=== PATIENT | female | born 1980 | race Asian ===

== ENCOUNTER 2016-12-18 19:37 | Inpatient (IN) | payer BC ==
[~2016-12-18] VITALS: Ht 154.9 cm; Wt 68.0 kg
[2016-12-18] VITALS (13 sets, daily range): BP systolic 115–161; BP diastolic 55–77
[~2016-12-18 19:37] MED LIST: DOCUSATE SODIU100 MG PO; ENDOCET 5-3251 EACH PO; IBUPROFEN800 MG PO; PERCOCET 5/31 TABLET PO; PRENATAL TABLE1 EAC3 PO; ZOFRAN4 MG PO
[2016-12-18 20:44] LABS: BASOPHIL COUNT 0.1 K/uL (0-0.1); EOSINOPHIL (%) 0.4 % (0-5); EOSINOPHIL COUNT 0.1 K/uL (0-0.3); HEMATOCRIT 41.1 % (36.0-46.0); IMMATURE GRANULOCYTE (%) 1.2 % (0.0-0.7); IMMATURE GRANULOCYTE COUNT 0.2 K/uL; INSTRUMENT ABS NEUTROPHIL CT 9.8 K/uL; LYMPHOCYTE COUNT 2.3 K/uL (1.0-2.8); MCH 30.5 PG (29.0-34.0); MCHC 32.8 G/DL (30.0-36.0); MCV 92.8 FL (83-99); MEAN PLAT.VOLUME 8.9 uM^3 (9.5-12.4); MONOCYTE COUNT 1.4 K/uL (0-0.8); NEUTROPHIL (%) 71.5 % (45-76); NEUTROPHIL COUNT 9.8 K/uL (1.8-6.4); PLATELET COUNT 255 K/uL (156-360); RBC DIS.WIDTH-CV 14.6 % (11.8-14.6); RBC DIS.WIDTH-SD 49.4 % (39-53); RED BLOOD COUNT 4.43 M/uL (3.80-5.20); WHITE BLOOD COUNT 13.7 K/uL (4.1-10.2)
[2016-12-19] VITALS (18 sets, daily range): BP systolic 106–146; BP diastolic 55–76
[2016-12-20 08:00] VITALS: BP 106/60
[2016-12-20 14:38] VITALS: BP 104/53
[2016-12-20 22:52] VITALS: BP 128/66
== END 2016-12-21 14:55 | disposition home or self-care (01) | DRG 775 ==
LOC: LDRP-OP 19:37 → 2WEST 19:38 → LDRP-OP 01-25 15:41
PROVIDERS: Nurse Practitioner
PROC: 10907ZC Drainage of Amniotic Fluid, Therapeutic from Products of Conception, Via Natural or Artificial Opening (ICD-10-PCS; principal; 2016-12-19)
PROC: 3E0R3CZ (ICD-10-PCS; principal; 2016-12-19)
PROC: 00HU33Z Insertion of Infusion Device into Spinal Canal, Percutaneous Approach (ICD-10-PCS; principal; 2016-12-19)
PROC: 10E0XZZ Delivery of Products of Conception, External Approach (ICD-10-PCS; principal; 2016-12-19)
DX: O70.1 Second degree perineal laceration during delivery (principal); O77.0 Labor and delivery complicated by meconium in amniotic fluid; Z3A.39 39 weeks gestation of pregnancy; Z37.0 Single live birth
CPT/HCPCS: 85025; C1755; G0378; J7120

== ENCOUNTER → 2016-12-26 | Outpatient (CLI) | payer BC | END | disposition home or self-care (01) | LOC: LAC 11:55 | DX: O92.79 Other disorders of lactation (principal) | CPT/HCPCS: G0463 ==